=== PATIENT | female | born 2000 | race Two or more races ===

== ENCOUNTER 2021-05-13 17:01 | Emergency (ER) | payer MEDICAID ==
[~2021-05-13] VITALS: Ht 162.6 cm; Wt 52.2 kg
[2021-05-13 17:08] VITALS: BP 132/70
--- NOTE | 2021-05-13 17:24 | NUR ---
20 y/o female from home c/o sudden onset asthma exacerbation x 20 min prior to arrival. Pt states she forgot inhaler. Adudible wheezing noted, bases of lungs diminished breath sounds. pt states 4/10 chest tighness. Pt rr even and deep. Pt does not appear in distress. Placed on pulse ox. VSS medhx: asthma
[2021-05-13] MEDS ORDERED: ALBUTEROL SULFATE/IPRATROPIU 3 ML SOL IH ONE (17:25)
[2021-05-13] MEDS ORDERED: DEXAMETHASONE 4 MG/ML VIAL PO ONE (17:25)
--- NOTE | 2021-05-13 17:30 | NUR ---
RT at bedside for breathing treatment
--- NOTE | 2021-05-13 17:52 | NUR ---
Pt states she is feeling better after breathing treatment
[2021-05-13] MEDS ORDERED: ALBU0.0912 IH (18:41)
--- NOTE | 2021-05-13 18:45 | NUR ---
Patient discharged with v/s stable. Written and verbal after care instructions given and explained. Patient alert, oriented and verbalized understanding of instructions. Ambulatory with steady gait. All questions addressed prior to discharge. ID band removed. Patient advised to follow up with PMD. Rx of ALBUTEROL SULFATE given.Opportunity to ask questions provided and answered.
[2021-05-13 18:46] VITALS: BP 132/70
--- NOTE | 2021-05-13 18:52 | NUR ---
The patient's care was reviewed and supervised by Kassi Monroe RN.
== END 2021-05-13 18:45 | disposition home or self-care (01) ==
LOC: MED 17:01
DX: J45.901 Unspecified asthma with (acute) exacerbation (principal)
CPT/HCPCS: 94640; 94760; 99283; J1100